=== PATIENT | female | born 1995 | race Caucasian/White ===

== ENCOUNTER 2017-12-20 12:40 | Emergency (ER) | payer BC ==
[~2017-12-20] VITALS: Ht 154.9 cm; Wt 47.5 kg
[2017-12-20 12:49] VITALS: BP 114/78; PULSE 115; RESP 18; TEMP 98.8; O2SAT 100
[2017-12-20] MEDS ORDERED: birth control PO (12:59)
[2017-12-20] MEDS ORDERED: PRED20 PO (13:20)
[2017-12-20] MEDS ORDERED: TRAM50TA PO (13:25)
--- NOTE | 2017-12-20 13:25 | PD ---
HPI Chief Complaint: Skin Problem Time Seen by Provider: 13:00 Travel History International Travel<30 days: No Contact w/Intl Traveler<30days: No Traveled to known affect area: No History of Present Illness HPI The patient was seen and examined in the presence of the nurse. This patient complains of rash. Duration 4 days. Severity is moderate. It is on her arms and legs. It itches and hurts. No alleviating factors. No ill contacts. PFSH Past Medical History Medical History: Denies Significant Hx Respiratory: Yes (ASTHMA) ?: Unknown Past Surgical History Surgical History: No Previous Surgery Social History Alcohol Use: Yes (wine/occ) Tobacco Use: No Substance Use: No Allergies-Medications (Allergen,Severity, Reaction): Coded Allergies: No Known Allergies (Unverified , 12/20/17) Reported Meds & Prescriptions Reported Meds & Active Scripts Active Prednisone 20 Mg Tab 40 Mg PO DAILY Take 40 mg (2 tablets) daily for 5 days Reported [ control] 1 Tab PO HS Review of Systems General / Constitutional: No: Fever HENT: No: Headaches Cardiovascular: No: Chest Pain or Discomfort Respiratory: No: Cough Physical Exam Narrative GASTROINTESTINAL: Abdomen soft, non-tender, nondistended. Positive bowel sounds. No hepato-splenomegaly, or palpable masses. No guarding. Psych: Normal mood and affect. Normal insight and judgment. Oral cavity clear Skin: Patient has lines of vesicular rash and there is erythematous base. Located on left arm and both legs Data Data Last Documented VS Vital Signs Date Time Temp Pulse Resp B/P (MAP) Pulse Ox O2 Delivery O2 Flow Rate FiO2 12/20/17 12:49 98.8 115 18 114/78 (90) 100 MDM Medical Decision Making Medical Screen Exam Complete: Yes Emergency Medical Condition: Yes Medical Record Reviewed: Yes Differential Diagnosis Eczema, dermatitis,Poison travis Narrative Course I have reviewed the patient's electronic medical record. To me this rash looks steroid responsive. Unclear the true etiology. Prednisone prescribed for 1 week. A few tramadol as well Diagnosis Primary Impression: Dermatitis Additional Instructions: The patient was advised to follow up with their physician and return if they worsen. The patient was warned about potential sedation for the medications they will receive on prescription. Med/Other Pt SpecificInfo: Prescription(s) given Scripts Prednisone (Prednisone) 20 Mg Tab 40 MG PO DAILY, #14 TAB 0 Refills Take 40 mg (2 tablets) daily for 5 days Prov: Bud Holden MD 12/20/17 Disposition: 01 DISCHARGE HOME Condition: Stable Bud Holden MD Dec 20, 2017 13:24
== END 2017-12-20 13:34 | disposition home or self-care (01) ==
LOC: NEPD 12:40
DX: L30.9 Dermatitis, unspecified (principal); J45.909 Unspecified asthma, uncomplicated
CPT/HCPCS: 99283